=== PATIENT | male | born 1985 | race Caucasian/White ===

== ENCOUNTER 2022-06-25 10:27 | Outpatient (CLI) | payer BC, SELFPAY ==
[2022-06-25 12:34] LABS: Chloride* 105 mmol/L (96-114)
[2022-06-25 12:35] LABS: Potassium* 4.7 mmol/L (3.6-5.1); Sodium* 142 mmol/L (135-149)
[2022-06-25 12:37] LABS: Aspartate Amino Transferase* 49 U/L (12-35); Bilirubin Total* 0.7 mg/dL (0.1-1.5); Blood Urea Nitrogen* 15 mg/dL (5-24); Carbon Dioxide* 28 mmol/L (20-32); Cholesterol* 268 mg/dL (90-199); Creatinine* 1.1 mg/dL (0.5-1.5); Estimated Glomerular Filt Rate 88 ml/min; Glucose* 97 mg/dL (60-115); Total Protein* 8.1 g/dL (6.0-8.3)
[2022-06-25 12:38] LABS: Alanine Aminotransferase* 70 U/L (4-50); Alkaline Phosphatase* 103 U/L (40-150); Calcium* 10.2 mg/dL (8.4-10.6); HDL Cholesterol* 49 mg/dL (>=40); LDL Cholesterol Calculated 161 mg/dL (<100); Triglycerides* 290 mg/dL (40-149)
[2022-06-25 12:59] LABS: Vitamin D 25 Hydroxy* 30 ng/mL (30-80)
[2022-06-25 13:13] LABS: Thyroid Stimulating Hormone* 0.859 uIU/mL (0.270-4.20)
== END 2022-06-25 10:28 | disposition home or self-care (01) ==
PROVIDERS: PCP Family Medicine; Visit Provider Family Medicine
DX: R53.83 Other fatigue (principal); F32.A Depression, unspecified; F41.9 Anxiety disorder, unspecified
CPT/HCPCS: 80053; 80061; 82306; 84443

== ENCOUNTER 2023-08-01 16:39 | Outpatient (CLI) | payer BC, SELFPAY | END 2023-08-01 16:40 | disposition home or self-care (01) | PROVIDERS: PCP Family Medicine; Visit Provider Family Medicine | DX: Z00.00 Encounter for general adult medical examination without abnormal findings (principal); E78.00 Pure hypercholesterolemia, unspecified; E55.9 Vitamin D deficiency, unspecified; R53.83 Other fatigue; R74.8 Abnormal levels of other serum enzymes | CPT/HCPCS: 80053; 80061; 82306 ==

== ENCOUNTER 2024-07-12 10:57 | Outpatient (CLI) | payer OTHER, SELFPAY | END 2024-07-12 10:58 | disposition home or self-care (01) | PROVIDERS: PCP Family Medicine; Visit Provider Nurse Practitioner Family | DX: R79.89 Other specified abnormal findings of blood chemistry (principal); E55.9 Vitamin D deficiency, unspecified; E78.00 Pure hypercholesterolemia, unspecified; R53.83 Other fatigue; Z13.228 Encounter for screening for other metabolic disorders; Z13.29 Encounter for screening for other suspected endocrine disorder | CPT/HCPCS: 80053; 80061; 82306; 84403; 84443 ==